=== PATIENT | female | born 1990 | race Caucasian/White ===

== ENCOUNTER 2023-04-22 21:46 | Emergency (ER) | payer SELFPAY ==
[~2023-04-22] VITALS: Ht 162.6 cm; Wt 99.8 kg
[2023-04-22 22:17] VITALS: BP 139/94; PULSE 93; RESP 16; TEMP 97.4; O2SAT 98
--- NOTE | 2023-04-22 22:22 | NUR ---
PT TO THE BATHROOM FOR URINE COLLECTION
--- NOTE | 2023-04-23 01:51 | NUR ---
PT AMBULATED TO BED 02, CALL LIGHT W/IN REACH.
[2023-04-23] MEDS ORDERED: ACETAMINOPHEN 325 MG TAB PO ONE (02:45)
[2023-04-23] MEDS ORDERED: METOCLOPRAMIDE 10 MG TAB PO ONE (02:45)
[2023-04-23] MEDS ORDERED: NAPR-54 PO (03:06)
[2023-04-23 03:20] VITALS: BP 120/82; PULSE 93; RESP 16; TEMP 97.4; O2SAT 98
--- NOTE | 2023-04-23 03:20 | NUR ---
Patient discharged with v/s stable. Written and verbal after care instructions given and explained. Patient alert, oriented and verbalized understanding of instructions. Ambulatory with steady gait. All questions addressed prior to discharge. ID band removed. Patient advised to follow up with PMD. Rx given to pt. Patient educated on indication of medication including possible reaction and side effects. Opportunity to ask questions provided and answered.
== END 2023-04-23 03:20 | disposition home or self-care (01) ==
LOC: MED 21:46
DX: R51.9 Headache, unspecified (principal); R11.0 Nausea; M79.10 Myalgia, unspecified site
CPT/HCPCS: 81025; 99283; J8597

== ENCOUNTER 2023-11-12 16:03 | Emergency (ER) | payer MEDICAID ==
[~2023-11-12] VITALS: Ht 162.6 cm; Wt 103.4 kg
[~2023-11-12 16:03] MED LIST: NAPR-54 PO
[2023-11-12 16:56] VITALS: BP 129/94; PULSE 74; RESP 19; TEMP 97.3; O2SAT 98
[2023-11-12] MEDS ORDERED: CEPH-588 PO (17:51)
[2023-11-12] MEDS ORDERED: IBUP-2213 PO (17:51)
[2023-11-12] MEDS ORDERED: KETOROLAC 30 MG/ML VIAL IM ONE (18:25)
[2023-11-12] MEDS ORDERED: SULF-59 PO (18:25)
[2023-11-12 19:13] VITALS: BP 120/80; PULSE 70; RESP 12; TEMP 98; O2SAT 99
== END 2023-11-12 19:13 | disposition home or self-care (01) ==
LOC: MED 16:03
DX: L03.116 Cellulitis of left lower limb (principal); Z98.890 Other specified postprocedural states; Z79.899 Other long term (current) drug therapy; Z79.1 Long term (current) use of non-steroidal anti-inflammatories (NSAID); Z79.2 Long term (current) use of antibiotics
CPT/HCPCS: 81025; 90471; 90715; 96372; 99284; J1885